=== PATIENT | female | born 1970 ===

== ENCOUNTER 2018-03-17 11:28 | Emergency (ER) | payer MEDICAID ==
[2018-03-17 11:35] VITALS: RESP 18
[2018-03-17 12:19] LABS: BASO # 0.02 K/mm3 (0.0-2.0); BASO % 0.3 % (0.0-3.0); EOS # 0.2 (0.0-0.7); EOS % 2.4 % (1.5-5.0); GRAN # 4.32 (1.4-6.5); GRAN % 62.2 % (50.0-68.0); HEMOGLOBIN 12.6 g/dL (12.0-16.0); LYMPH % 28.5 % (22.0-35.0); MEAN CELL VOLUME 88.5 fl (80.0-105.0); MEAN CORPUSCULAR HGB CONC 32.7 g/dl (31.0-37.0); MEAN PLATELET VOLUME 10.4 fl (7.0-11.0); MONO # 0.5 (0.1-0.6); MONO % 6.6 % (1.0-6.0); RBC 4.35 10^6/uL (3.5-6.1); RED CELL DISTRIBUTION WIDTH 13.9 % (11.5-14.5)
[2018-03-17 12:31] LABS: D DIMER < 200 ng/mL (0-243); INR 0.99 (0.93-1.08); PARTIAL THROMBOPLASTIN TIME 28.8 Seconds (25.1-36.5); PROTHROMBIN TIME 11.4 SECONDS (9.4-12.5)
[2018-03-17 12:34] LABS: ALB/GLOB RATIO 1.2 (1.1-1.8)
[2018-03-17 12:50] LABS: ALBUMIN 4.2 g/dL (3.0-4.8); ALT/SGPT 22 U/L (7-56); AST/SGOT 21 U/L (14-36); BLOOD UREA NITROGEN 11 mg/dL (7-21); CALCIUM 9.2 mg/dL (8.4-10.5); GFR AFRICAN-AMERICAN > 60; GFR NON-AFRICAN AMERICAN > 60
[2018-03-17 12:52] LABS: TROPONIN I < 0.01 ng/mL
[2018-03-17 12:56] LABS: B-TYPE NATRIURETIC PEPTIDE 19.6 pg/mL (0-450)
[2018-03-17 13:13] LABS: URINE APPEARANCE CLEAR (CLEAR); URINE BILIRUBIN NEGATIVE (NEGATIVE); URINE BLOOD NEGATIVE (NEGATIVE); URINE COLOR YELLOW (YELLOW); URINE GLUCOSE (UA) NEGATIVE (NEGATIVE); URINE LEUKOCYTE ESTERASE NEGATIVE Leu/uL (NEGATIVE); URINE PROTEIN NEGATIVE mg/dL (<30 mg/dL); URINE UROBILINOGEN 0.2 E.U./dL (<1 E.U./dL)
--- NOTE | 2018-03-17 13:21 | ED PDOC ---
Arrival/HPI - General Chief Complaint: Chest Pain Time Seen by Provider: 03/17/18 11:39 Historian: Patient - History of Present Illness Narrative History of Present Illness (Text): 03/17/18 13:17 47yo female with pmhx of hypothyroid, anxiety who present with complaint of palpitation and chest pain, intermittently since last night. she describes pain as "pressure". States the last time she felt pain was this morning. Also report worsening SOB with exertion x one month. She denies LE edema, calf pain, dizziness, nausea, vomiting, upper ripping/tearing back pain, focal weakness, dizziness, diaphoresis, recent travel/surgery, OCP use. Past Medical History - Provider Review Nursing Documentation Reviewed: Yes - Infectious Disease Hx of Infectious Diseases: None - Endocrine/Metabolic Hx Hyperthyroidism: Yes - Psychiatric Hx Anxiety: Yes Hx Substance Use: No Family/Social History - Physician Review Nursing Documentation Reviewed: Yes Family/Social History: Unknown Family HX Smoking Status: Never Smoked Hx Alcohol Use: No Hx Substance Use: No Allergies/Home Meds Allergies/Adverse Reactions: Allergies No Known Allergies Allergy (Verified 03/17/18 11:34) Home Medications: Home Meds Medication Instructions Recorded Confirmed Unobtainable 03/17/18 03/17/18 Review of Systems - Physician Review All systems were reviewed & negative as marked: Yes - Review of Systems Constitutional: Normal Eyes: Normal ENT: Normal Respiratory: SOB Cardiovascular: Chest Pain, Palpitations. absent: Edema, Calf Pain, [place] Gastrointestinal: Normal Genitourinary Female: Normal Musculoskeletal: Normal Skin: Normal Neurological: Normal Endocrine: Normal Hemo/Lymphatic: Normal Psychiatric: Normal Physical Exam Vital Signs Reviewed: Yes Vital Signs Temp Pulse Resp BP Pulse Ox 03/17/18 16:39 98.1 F 75 18 119/79 98 03/17/18 16:00 79 18 117/78 97 03/17/18 12:51 86 18 115/75 97 03/17/18 11:34 98.3 F 99 H 18 113/70 97 Temperature: Afebrile Blood Pressure: Normal Pulse: Regular Respiratory Rate: Normal Appearance: Positive for: Well-Appearing, Non-Toxic, Comfortable Pain Distress: None Mental Status: Positive for: Alert and Oriented X 3 - Systems Exam Head: Present: Atraumatic, Normocephalic Pupils: Present: PERRL Extroacular Muscles: Present: EOMI Conjunctiva: Present: Normal Mouth: Present: Moist Mucous Membranes Neck: Present: Normal Range of Motion Respiratory/Chest: Present: Clear to Auscultation, Good Air Exchange. No: Respiratory Distress, Accessory Muscle Use, Wheezes, Decreased Breath Sounds, Rales, Retracting, Rhonchi Cardiovascular: Present: Regular Rate and Rhythm, Normal S1, S2. No: Murmurs Abdomen: No: Tenderness, Distention, Peritoneal Signs Back: Present: Normal Inspection Upper Extremity: Present: Normal Inspection. No: Cyanosis, Edema Lower Extremity: Present: Normal Inspection. No: Edema Neurological: Present: GCS=15, CN II-XII Intact, Speech Normal Skin: Present: Warm, Dry, Normal Color. No: Rashes Psychiatric: Present: Alert, Oriented x 3, Normal Insight, Normal Concentration Medical Decision Making ED Course and Treatment: 03/17/18 20:01 Pt presented for stated history. She was hemodynamically stable and in no distress in ED. She described palpitation. Notes that her symptoms resolved this morning. Lab was ordered and first and second CE was negative in about 4hrs intervals. EKG NSR @95bpm NSTEMI. Result was DW the pt. She was strongly advised to f/u with a [employer] for further outpt evaluation. - Lab Interpretations Lab Results: 03/17/18 12:14 03/17/18 12:14 Lab Results 03/17/18 15:36: Lactate Dehydrogenase 442, Total Creatine Kinase 99, Troponin I < 0.01 03/17/18 12:55: Urine Opiates Screen Negative, Urine Methadone Screen Negative, Ur Barbiturates Screen Negative, Ur Phencyclidine Scrn Negative, Ur Amphetamines Screen Negative, U Benzodiazepines Scrn Negative, U Oth Cocaine Metabols Negative, U Cannabinoids Screen Negative 03/17/18 12:55: Urine Color Yellow, Urine Appearance Clear, Urine pH 6.0, Ur Specific [place] 1.010, Urine Protein Negative, Urine Glucose (UA) Negative, Urine Ketones Negative, Urine Blood Negative, Urine Nitrate Negative, Urine Bilirubin Negative, Urine Urobilinogen 0.2, Ur Leukocyte Esterase Negative 03/17/18 12:14: Sodium 144, Potassium 3.6, Chloride 104, Carbon Dioxide 29, Anion Gap 14, BUN 11, Creatinine 0.7, Est GFR ( Amer) > 60, Est GFR (Non- Af Amer) > 60, Random Glucose 120 H, Calcium 9.2, Magnesium 2.0, Total Bilirubin 0.1 L, AST 21, ALT 22, Alkaline Phosphatase 85, Lactate Dehydrogenase 477, Total Creatine Kinase 104, Troponin I < 0.01, NT-Pro-B Natriuret Pep 19.6, Total Protein 7.7, Albumin 4.2, Globulin 3.5, Albumin/Globulin Ratio 1.2 03/17/18 12:14: PT 11.4, INR 0.99, APTT 28.8, D-Dimer, Quantitative < 200 03/17/18 12:14: WBC 7.0, RBC 4.35, Hgb 12.6, Hct 38.5, MCV 88.5, MCH 29.0, MCHC 32.7, RDW 13.9, Plt Count 234, MPV 10.4, Gran % 62.2, Lymph % (Auto) 28.5, [place] % (Auto) 6.6 H, Eos % (Auto) 2.4, Baso % (Auto) 0.3, Gran # 4.32, Lymph # (Auto ) 2.0, [place] # (Auto) 0.5, Eos # (Auto) 0.2, Baso # (Auto) 0.02 03/17/18 12:00: Free T4 1.13, TSH 3rd Generation 1.34 - RAD Interpretation Radiology Orders: 03/17/18 11:39 CHEST PORTABLE [RAD] Stat Disposition/Present on Arrival - Present on Arrival Any Indicators Present on Arrival: No History of DVT/PE: No History of Uncontrolled Diabetes: No Urinary Catheter: No History of Decub. Ulcer: No History Surgical Site Infection Following: None - Disposition Have Diagnosis and Disposition been Completed?: Yes Diagnosis: Chest pain Disposition: HOME/ ROUTINE Disposition Time: 16:25 Patient Plan: Discharge Condition: STABLE Discharge Instructions (ExitCare): Chest Pain, Chest Pain (ED) Additional Instructions: Follow up with your Doctor/[facility] Return to ED for any new or worsening symptoms Referrals: Som Sevilla MD [Staff Provider] - Follow up with primary Forms: [employer] (Turkmen)
[2018-03-17 13:29] LABS: FREE T4 1.13 ng/dL (0.78-2.19)
[2018-03-17 13:33] LABS: BARBITURATES, UR NEGATIVE (NEGATIVE); BENZODIAZEPINES, UR NEGATIVE (NEGATIVE); OPIATES, UR NEGATIVE (NEGATIVE); PHENCYCLIDINE, UR NEGATIVE (NEGATIVE)
--- NOTE | 2018-03-17 15:05 | RAD ---
HISTORY: Chest pain. COMPARISON: No prior. FINDINGS: LUNGS: No active pulmonary disease. PLEURA: No significant pleural effusion identified, no pneumothorax apparent. CARDIOVASCULAR: No radiographic findings to suggest acute or significant cardiovascular disease. OSSEOUS STRUCTURES: No significant abnormalities. VISUALIZED UPPER ABDOMEN: Normal. OTHER FINDINGS: None. IMPRESSION: No active disease.
[2018-03-17 16:11] LABS: TROPONIN I < 0.01 ng/mL
[2018-03-17 16:40] VITALS: BP 119/79; PULSE 75; TEMP 98.1; O2SAT 98
--- NOTE | 2018-03-17 17:09 | CARD ---
APPROVED REPORT EKG Measurement Heart [id number] <Conclusion> Normal sinus rhythm Nonspecific T wave abnormality Abnormal ECG
== END 2018-03-17 16:39 | disposition home or self-care (01) ==
LOC: ED 11:28
DX: R07.9 Chest pain, unspecified (principal); F41.9 Anxiety disorder, unspecified